=== PATIENT | female | born 1995 | race Caucasian/White ===

== ENCOUNTER 2019-03-18 20:23 | Emergency (ER) | payer OTHER, MEDICAID ==
[~2019-03-18] VITALS: Ht 162.6 cm; Wt 58.1 kg
[~2019-03-18 20:23] MED LIST: AMOXICILLIN 50500 M1 PO; AMOXICILLIN 50500 MG PO; AMOXICILLIN875 MG PO; AUGMENTIN 875875 MG PO; LEXAPRO 10 MG T10 M2 PO; NOHOMEMEDICATIONS; TRAMADOL 50 MG50 MG PO; ULTRAM 50MG TAB50 MG PO; ZOFRAN ODT4 MG PO; ZOLOFT25 MG PO; ZPAK PO
[2019-03-18 21:07] LABS: URINE BILIRUBIN NEGATIVE (Negative); URINE BLOOD NEGATIVE (Negative); URINE CLARITY CLEAR; URINE COLOR YELLOW; URINE GLUCOSE-RANDOM NEGATIVE (Negative); URINE KETONES NEGATIVE (Negative); URINE LEUKOCYTES-REFLEX NEGATIVE (Negative); URINE NITRITE-REFLEX NEGATIVE (Negative); URINE PROTEIN NEGATIVE (Negative); URINE SPECIFIC GRAVITY >= 1.030 (1.005-1.030); URINE UROBILINOGEN 0.2 E.U./dl (0.2-1.0)
[2019-03-18 21:18] LABS: INFLUENZA A ANTIGEN Positive (Negative); INFLUENZA B ANTIGEN Negative (Negative)
[2019-03-18] MEDS ORDERED: TAMIFLU75 MG PO (21:28)
[2019-03-18] MEDS ORDERED: ONDANSETRON HCL4 M2 PO (21:28)
[2019-03-18 21:42] VITALS: BP 124/70
== END 2019-03-18 21:44 | disposition home or self-care (01) ==
LOC: M.ERS 20:23
PROVIDERS: Nurse Practitioner Family
DX: O99.512 Diseases of the respiratory system complicating pregnancy, second trimester (principal); O99.342 Other mental disorders complicating pregnancy, second trimester; Z3A.24 24 weeks gestation of pregnancy

== ENCOUNTER 2019-05-09 11:03 | Emergency (ER) | payer OTHER, MEDICAID ==
[~2019-05-09] VITALS: Ht 165.1 cm; Wt 64.4 kg
[~2019-05-09 11:03] MED LIST changes: +ONDANSETRON HCL4 M2 PO; +TAMIFLU75 MG PO
[2019-05-09] MEDS ORDERED: PENICILLIN V P500 MG PO (11:33)
[2019-05-09 11:39] VITALS: BP 120/55
== END 2019-05-09 11:43 | disposition home or self-care (01) ==
LOC: M.ERS 11:03
DX: O26.893 Other specified pregnancy related conditions, third trimester (principal); K04.7 Periapical abscess without sinus; O99.343 Other mental disorders complicating pregnancy, third trimester; Z3A.38 38 weeks gestation of pregnancy

== ENCOUNTER 2019-08-26 08:39 | Emergency (ER) | payer OTHER, MEDICAID ==
[~2019-08-26] VITALS: Ht 162.6 cm; Wt 49.9 kg
[~2019-08-26 08:39] MED LIST changes: +PENICILLIN V P500 MG PO
[2019-08-26] MEDS ORDERED: SUPER THERAVIT1 EACH PO (08:52)
[2019-08-26] MEDS ORDERED: TRAMADOL 50 MG50 MG PO (09:08)
[2019-08-26] MEDS ORDERED: AMOXICILLIN 50500 MG PO (09:08)
[2019-08-26 09:15] VITALS: BP 107/57
== END 2019-08-26 09:15 | disposition home or self-care (01) ==
LOC: M.ERS 08:39
DX: K02.9 Dental caries, unspecified (principal); F17.210 Nicotine dependence, cigarettes, uncomplicated

== ENCOUNTER 2019-10-11 18:25 | Emergency (ER) | payer OTHER, MEDICAID ==
[~2019-10-11] VITALS: Ht 162.6 cm; Wt 49.9 kg
[~2019-10-11 18:25] MED LIST changes: +SUPER THERAVIT1 EACH PO
[2019-10-11] MEDS ORDERED: CIPRO500 M1 PO (19:06)
[2019-10-11 19:23] VITALS: BP 100/63
== END 2019-10-11 19:23 | disposition home or self-care (01) ==
LOC: M.ERS 18:25
DX: S91.332A Puncture wound without foreign body, left foot, initial encounter (principal); F17.210 Nicotine dependence, cigarettes, uncomplicated; W22.8XXA Striking against or struck by other objects, initial encounter; Y93.89 Activity, other specified; Y92.89 Other specified places as the place of occurrence of the external cause; Y99.8 Other external cause status

== ENCOUNTER 2020-02-29 14:41 | Emergency (ER) | payer OTHER, MEDICAID ==
[~2020-02-29] VITALS: Ht 162.6 cm; Wt 77.1 kg
[~2020-02-29 14:41] MED LIST changes: +CIPRO500 M1 PO
[2020-02-29 16:19] VITALS: BP 121/77
[2020-03-02 10:08] LABS: HIV-1/HIV-2 ANTIBODY Non Reactive (Non Reactive)
== END 2020-02-29 16:20 | disposition home or self-care (01) ==
LOC: M.ERS 14:41
PROVIDERS: Nurse Practitioner Family
DX: Z11.4 Encounter for screening for human immunodeficiency virus [HIV] (principal)

== ENCOUNTER 2020-03-08 04:51 | Emergency (ER) | payer OTHER, MEDICAID ==
[~2020-03-08] VITALS: Ht 162.6 cm; Wt 49.9 kg
[2020-03-08 05:30] LABS: URINE BILIRUBIN NEGATIVE (Negative); URINE BLOOD 3+ (Negative); URINE CLARITY CLEAR; URINE COLOR YELLOW; URINE GLUCOSE-RANDOM NEGATIVE (Negative); URINE KETONES NEGATIVE (Negative); URINE NITRITE-REFLEX NEGATIVE (Negative); URINE PROTEIN 2+ (Negative); URINE SPECIFIC GRAVITY 1.025 (1.005-1.030); URINE UROBILINOGEN 0.2 E.U./dl (0.2-1.0)
[2020-03-08 05:31] LABS: URINE LEUKOCYTES-REFLEX 2+ (Negative)
[2020-03-08 05:37] LABS: CASTS None Seen /LPF (None Seen); CRYSTALS None Seen /LPF (None Seen); MUCUS 0-3 Light strn/LPF (None Seen); SQUAMOUS 0-3 Few /LPF (0-3); URINE RBC 3-10 Few /HPF (0-2); URINE WBC-REFLEX >25 Many /HPF (0-5)
[2020-03-08] MEDS ORDERED: CIPROFLOXACIN500 M1 PO (05:54)
[2020-03-08 06:20] VITALS: BP 121/78
== END 2020-03-08 06:21 | disposition home or self-care (01) ==
LOC: M.ERS 04:51
PROVIDERS: Personal Emergency Response Attendant
DX: N39.0 Urinary tract infection, site not specified (principal); F17.210 Nicotine dependence, cigarettes, uncomplicated

== ENCOUNTER 2020-09-10 01:06 | Emergency (ER) | payer OTHER, MEDICAID ==
[~2020-09-10] VITALS: Ht 162.6 cm; Wt 47.6 kg
[~2020-09-10 01:06] MED LIST changes: +CIPROFLOXACIN500 M1 PO
[2020-09-10] MEDS ORDERED: CLEOCIN HCL150 MG PO (01:20)
[2020-09-10] MEDS ORDERED: BACTRIM DS TAB1 EAC1 PO (01:21)
[2020-09-10] MEDS ORDERED: PYRIDIUM100 M1 PO (01:21)
[2020-09-10 01:36] LABS: ABSOLUTE EOSINOPHILS 0.1 thou/uL (0.0-0.7); ABSOLUTE MONOCYTES 0.6 thou/uL (0.0-1.2); ABSOLUTE NEUTROPHILS 7.5 thou/uL (1.6-8.1); BASOPHILS 0.4 %; EOSINOPHILS 1.6 %; HEMATOCRIT 43.7 % (37.0-47.0); HEMOGLOBIN 14.5 gm/dL (12.0-15.0); LYMPHOCYTES 10.7 %; MCH 31.7 pg (26.0-34.0); MCHC 33.1 g/dL (28.0-37.0); MCV 95.6 fL (80.0-100.0); MPV 7.5 fl. (7.2-11.1); NUCLEATED RBCS 0 /100WBC; PLATELET COUNT* 269 thou/uL (150-400); POLYS 81.3 %; RBC 4.57 mil/uL (4.20-5.00); RDW-CV 13.1 % (10.5-14.5); WBC 9.2 thou/uL (4.0-11.0)
[2020-09-10 01:38] LABS: URINE BILIRUBIN NEGATIVE (Negative); URINE BLOOD 3+ (Negative); URINE COLOR YELLOW; URINE GLUCOSE-RANDOM NEGATIVE (Negative); URINE KETONES NEGATIVE (Negative); URINE LEUKOCYTES-REFLEX NEGATIVE (Negative); URINE NITRITE-REFLEX NEGATIVE (Negative); URINE PROTEIN TRACE (Negative); URINE SPECIFIC GRAVITY 1.025 (1.005-1.030)
[2020-09-10 01:40] LABS: URINE CLARITY SL CLOUDY
[2020-09-10 01:49] LABS: BACTERIA-REFLEX >30 Many /HPF (None Seen); CASTS None Seen /LPF (None Seen); CRYSTALS None Seen /LPF (None Seen); MUCUS >6 Heavy strn/LPF (None Seen); SQUAMOUS 0-3 Few /LPF (0-3); TRANSITIONAL EPITHEL CELL 0-3 Few /LPF (None Seen); URINE RBC 3-10 Few /HPF (0-2); URINE WBC-REFLEX 0-5 Rare /HPF (0-5)
[2020-09-10 01:52] LABS: CALCIUM 9.2 mg/dL (8.5-10.1); CREATININE 0.7 mg/dL (0.6-1.3); POTASSIUM 3.2 mmol/L (3.5-5.1)
[2020-09-10 01:56] LABS: ALBUMIN 3.6 g/dL (3.4-5.0); TOTAL BILIRUBIN 0.5 mg/dL (<0.1-1.0); TOTAL PROTEIN 7.2 g/dL (6.4-8.2)
[2020-09-10] MEDS ORDERED: ZOFRAN ODT4 MG PO (02:19)
[2020-09-10 02:29] VITALS: BP 111/70
== END 2020-09-10 02:30 | disposition home or self-care (01) ==
LOC: M.ERS 01:06
PROVIDERS: Emergency Medicine
DX: R11.2 Nausea with vomiting, unspecified (principal); R10.33 Periumbilical pain

== ENCOUNTER 2020-11-12 21:36 | Emergency (ER) | payer OTHER, MEDICAID ==
[~2020-11-12] VITALS: Ht 162.6 cm; Wt 47.6 kg
[~2020-11-12 21:36] MED LIST changes: +BACTRIM DS TAB1 EAC1 PO; +CLEOCIN HCL150 MG PO; +PYRIDIUM100 M1 PO
[2020-11-12] MEDS ORDERED: AMOXICILLIN875 MG PO (21:53)
[2020-11-12] MEDS ORDERED: HYDROCODONE-ACE15 ML PO (21:53)
[2020-11-12 22:29] VITALS: BP 113/67
== END 2020-11-12 22:29 | disposition home or self-care (01) ==
LOC: M.ERS 21:36
DX: J02.0 Streptococcal pharyngitis (principal)